=== PATIENT | female | born 1965 | race Caucasian/White ===

== ENCOUNTER 2016-04-23 19:06 | Emergency (ER) | payer OTHER ==
[~2016-04-23] VITALS: Ht 160 cm; Wt 68.0 kg
--- NOTE | 2016-04-23 19:11 | NUR ---
Pt to bed 1 by EMS.
[2016-04-23] MEDS ORDERED: diphenhydrAMINE 50 MG/ML VIAL IVP ONE (19:15)
[2016-04-23] MEDS ORDERED: DEXAMETHASONE 10 MG/ML VIAL IVP ONE (19:15)
[2016-04-23] MEDS ORDERED: DEXAMETHASONE 4 MG/ML VIAL ONE (19:15)
[2016-04-23] MEDS ORDERED: diphenhydrAMINE 50 MG/ML VIAL ONE (19:16)
[2016-04-23 19:19] VITALS: BP 163/85
--- NOTE | 2016-04-23 19:59 | NUR ---
PATIENT PRESENTS TO ED WITH sob . PT STATES she was eating shrimp and had an allergic reaction . DENIES N/V/D; SKIN IS PINK/WARM/DRY; AAOX4 WITH EVEN AND STEADY GAIT; LUNGS auscultate expiratory wheezes in bl bases; HR EVEN AND REGULAR; PT DENIES ANY FEVER, CP, OR COUGH AT THIS TIME; PATIENT STATES PAIN OF 0/10 AT THIS TIME; VSS; PATIENT POSITIONED FOR COMFORT; HOB ELEVATED; BEDRAILS UP X2; BED DOWN. ER MD MADE AWARE OF PT STATUS.
[2016-04-23 21:19] VITALS: BP 143/55
--- NOTE | 2016-04-23 21:19 | NUR ---
IV STARTED IN FIELD
--- NOTE | 2016-04-23 21:20 | NUR ---
Patient discharged with v/s stable. Written and verbal after care instructions given and explained. Patient alert, oriented and verbalized understanding of instructions. Ambulatory with steady gait. All questions addressed prior to discharge. ID band removed. Patient advised to follow up with PMD. Rx of PREDNISONE AND BENADRYL ALLERGY given. Patient educated on indication of medication including possible reaction and side effects. Opportunity to ask questions provided and answered.
== END 2016-04-23 21:20 | disposition home or self-care (01) ==
LOC: MED 19:06
DX: T78.1XXA Other adverse food reactions, not elsewhere classified, initial encounter (principal); X58.XXXA Exposure to other specified factors, initial encounter; I10 Essential (primary) hypertension
CPT/HCPCS: 96372; 96374; 96375; 99284; J0171; J1100; J1200

== ENCOUNTER 2018-06-21 14:56 | Emergency (ER) | payer OTHER ==
[~2018-06-21] VITALS: Ht 149.9 cm; Wt 64.9 kg
[2018-06-21 15:00] VITALS: BP 136/70
--- NOTE | 2018-06-21 15:05 | NUR ---
BIB SON WITH C/O SEVERE HEADACHE 10/03 X 4 DAYS, FEVER AND SOB, CHEST PAIN COMES AND GOES X3 DAYS.AAOX4. PT WAS SEEN BY PCP ON MONDAY AND WAS DIAGNOSED WITH HTN AND UTI ON [place], CIPRO AND PYRIDIUM. PT WAS SEEN TODAY BY PCP AND WAS REFERRED TO GO TO ER. HOB UP. ON LOW BED POSITION, LOCKED. BED SIDE RAILS UP X 1. ER MADE AWARE OF PT STATUS.
[2018-06-21] MEDS ORDERED: NACL 0.9% 1,000 ML IV ONE (15:55)
[2018-06-21 16:14] LABS: BASOPHILS % (AUTO) 0.6 % (0.0-2.0); EOSINOPHILS % (AUTO) 0.1 % (0.0-4.0); HEMATOCRIT 37.5 % (36-48); HEMOGLOBIN 12.5 g/dL (12.0-16.0); LYMPHOCYTES % (AUTO) 18.7 % (20.5-51.1); MEAN CORPUSCULAR HEMOGLOBIN 30 pg (27-31); MEAN CORPUSCULAR HGB CONC 34 g/dL (33-37); MEAN CORPUSCULAR VOLUME 88.9 fL (80-94); MONOCYTES # (AUTO) 0.6 K/uL (0.8-1.0); MONOCYTES % (AUTO) 11.3 % (1.7-9.3); NEUTROPHILS # (AUTO) 3.8 K/uL (1.8-7.7); NEUTROPHILS % (AUTO) 69.3 % (42.2-75.2); PLATELET COUNT (AUTO) 218 K/uL (140-450); RED BLOOD CELL COUNT(AUTO) 4.21 MIL/uL (4.20-5.40); RED CELL DISTRIBUTION WIDTH 13.8 % (11.6-13.7); WHITE BLOOD COUNT (AUTO) 5.4 K/uL (4.8-10.8)
[2018-06-21 16:24] LABS: ANION GAP 15.6 (8-16); CARBON DIOXIDE 27.9 mmol/L (21-32); CREATININE 0.8 mg/dL (0.6-1.3); POTASSIUM 3.5 mmol/L (3.5-5.1)
[2018-06-21 16:30] LABS: ALBUMIN 3.5 g/dL (3.4-5.0); TOTAL BILIRUBIN 0.7 mg/dL (0.0-1.0)
--- NOTE | 2018-06-21 16:32 | NUR ---
PT TAKEN BY CONTROL SPECIALIST VIA BED
--- NOTE | 2018-06-21 16:32 | NUR ---
Jaky rios in [facility] - 06/21/18 at [address] AT BEDSIDE
[2018-06-21 16:37] LABS: BILIRUBIN,URINE NEGATIVE (NEGATIVE); BLOOD, URINE 1+ (NEGATIVE); COLOR,URINE YELLOW (YELLOW); LEUKOCYTE ESTERASE ,URINE 1+ (NEGATIVE); NITRITE, URINE NEGATIVE (NEGATIVE); UGLUCOSE NEGATIVE (NEGATIVE)
[2018-06-21 16:39] LABS: APPEARANCE,URINE HAZY (CLEAR)
--- NOTE | 2018-06-21 16:43 | NUR ---
PT TAKEN BACK TO ROOM VIA BED BY ORDER BUILDER LOADER
--- NOTE | 2018-06-21 17:05 | NUR ---
PT IS RESTING AT THIS TIME. SON AT BEDSIDE.
[2018-06-21] MEDS ORDERED: diphenhydrAMINE 50 MG/ML VIAL IVP ONE (17:20)
[2018-06-21] MEDS ORDERED: METOCLOPRAMIDE 10 MG/2 ML INJ VIAL IVP ONE (17:20)
[2018-06-21] MEDS ORDERED: MORPHINE SULFATE 4 MG/ML SYR IVP ONE (17:20)
[2018-06-21 18:56] VITALS: BP 124/62
--- NOTE | 2018-06-22 10:20 | NUR ---
Late entry. Confirmed with RN that 1000 ml 0.9NS IV bolus completed at 1730.
== END 2018-06-21 19:00 | disposition home or self-care (01) ==
LOC: MED 14:56
DX: R51 Headache (principal); R53.1 Weakness; I10 Essential (primary) hypertension; Z88.0 Allergy status to penicillin; Z91.013 Allergy to seafood
CPT/HCPCS: 36415; 70450; 80053; 81001; 85025; 87086; 87804; 96374; 96375; 99284; J1200; J2270; J2765; J7030

== ENCOUNTER 2019-05-22 20:07 | Emergency (ER) | payer OTHER ==
[~2019-05-22] VITALS: Ht 149.9 cm; Wt 68.0 kg
[2019-05-22 20:08] VITALS: BP 143/82
--- NOTE | 2019-05-22 20:08 | NUR ---
TO BED # 08 AMBULATORY
[2019-05-22] MEDS ORDERED: diphenhydrAMINE 50 MG CAP PO ONE (20:15)
--- NOTE | 2019-05-22 20:17 | NUR ---
Dr. Zelaya examining patient.
--- NOTE | 2019-05-22 20:25 | NUR ---
PT ASSESSMENT COMPLETE. PT ATTACHED TO MONITORING SYSTEM. FAMILY AT BEDSIDE.
--- NOTE | 2019-05-22 20:26 | NUR ---
EXPLAINED TO PT RISK OF WORSENED REACTION WITH CONTINOUS CONSUMPTION OF SHRIMP. PT NODDED HEAD IN AGREEANCE TO INFORMATION. FAMILY AT BEDSIDE DURING EXPLAINATION.
[2019-05-22] MEDS: predniSONE 20 MG TAB PO ONE (20:27)
[2019-05-22] MEDS: EPINEPHrine 1:1000 - 1 MG/ML AMP IM ONE (20:33)
--- NOTE | 2019-05-22 21:35 | NUR ---
PT SEEN WITH EYES CLOSED. VISIBLE CHEST RISE AND FALL. PT AWAKEN TO SHAKING AND TOUCH. O2 SAT AT 99% WITH RR AT 27 EVEN AND UNLABORED.
[2019-05-22] MEDS: KETOROLAC 60 MG/2 ML VIAL IM ONE (21:38)
--- NOTE | 2019-05-22 22:03 | NUR ---
Patient discharged with v/s stable. Written and verbal after care instructions given and explained. Patient alert, oriented and verbalized understanding of instructions. Ambulatory with steady gait. All questions addressed prior to discharge. ID band removed. Patient advised to follow up with PMD. Rx of EPI-PEN, BENADRYL, AND PREDNISONE given. Patient educated on indication of medication including possible reaction and side effects. Opportunity to ask questions provided and answered.
[2019-05-22 22:10] VITALS: BP 137/82
[2019-05-23 16:22] LABS: ALBUMIN 3.9 g/dL (3.4-5.0); CARBON DIOXIDE 29.3 mmol/L (21-32); CHOL/HDL RATIO 4.3 (1-4.5); CREATININE 0.8 mg/dL (0.6-1.3); POTASSIUM 4.3 mmol/L (3.5-5.1); TOTAL BILIRUBIN 0.4 mg/dL (0.0-1.0)
[2019-05-23 17:15] LABS: BASOPHILS % (AUTO) 0.3 % (0.0-2.0); EOSINOPHILS % (AUTO) 0.3 % (0.0-4.0); HEMATOCRIT 36.2 % (36-48); HEMOGLOBIN 12.2 g/dL (12.0-16.0); LYMPHOCYTES # (AUTO) 2.9 K/uL (2.5-16.5); LYMPHOCYTES % (AUTO) 27.6 % (20.5-51.1); MEAN CORPUSCULAR HEMOGLOBIN 30 pg (27-31); MEAN CORPUSCULAR HGB CONC 34 g/dL (33-37); MEAN CORPUSCULAR VOLUME 88.1 fL (80-94); MONOCYTES # (AUTO) 0.4 K/uL (0.8-1.0); MONOCYTES % (AUTO) 3.8 % (1.7-9.3); NEUTROPHILS # (AUTO) 7.1 K/uL (1.8-7.7); PLATELET COUNT (AUTO) 399 K/uL (140-450); RED BLOOD CELL COUNT(AUTO) 4.11 MIL/uL (4.20-5.40); RED CELL DISTRIBUTION WIDTH 14.2 % (11.6-13.7); WHITE BLOOD COUNT (AUTO) 10.4 K/uL (4.8-10.8)
[2019-05-23 19:44] LABS: ALBUMIN 3.9 g/dL (3.4-5.0); BILIRUBIN,DIRECT 0.1 mg/dL (0.0-0.3); TOTAL BILIRUBIN 0.4 mg/dL (0.0-1.0)
[2019-05-24 06:11] LABS: HEPATITIS A ANTIBODY IGM Negative (Negative); HEPATITIS B SURFACE ANTIGEN Negative (Negative)
== END 2019-05-22 22:03 | disposition home or self-care (01) ==
LOC: MED 20:07
DX: L27.2 Dermatitis due to ingested food (principal); T78.1XXA Other adverse food reactions, not elsewhere classified, initial encounter; I10 Essential (primary) hypertension; Z88.0 Allergy status to penicillin; X58.XXXA Exposure to other specified factors, initial encounter
CPT/HCPCS: 36415; 80053; 80061; 80074; 80076; 83036; 85025; 96372; 99284; J0171; J1885; J7512